=== PATIENT | male | born 1965 | race Hispanic/Latino ===

== ENCOUNTER → 2022-11-18 | Outpatient (CLI) | payer OTHER ==
[~2022-11-18] MED LIST: IOHEXOL 350 MG/ML 100ML INFUS..BTL IV ONE; METOPROLOL TARTRATE 1 MG/ML 5ML VIAL IV ONE
== END | disposition home or self-care (01) ==
LOC: RAH 08:03
PROVIDERS: ATTEND Student in an Organized Health Care Education/Training Program
DX: R07.9 Chest pain, unspecified (principal)
CPT/HCPCS: 75574; J3490 ×2; Q9967

== ENCOUNTER 2023-01-26 06:27 | Inpatient (IN) | payer OTHER ==
[2023-01-22 13:07] LABS: BASOPHILS # (AUTO) 0.05 K/uL (0.00-0.20); BASOPHILS % (AUTO) 0.7 % (0.0-5.0); EOSINOPHILS # (AUTO) 0.41 K/uL (0.00-0.70); EOSINOPHILS % (AUTO) 5.9 % (0.0-8.0); HEMATOCRIT 40.5 % (42-54); IMMATURE GRANULOCYTE ABSOLUTE 0.05 K/uL (0-1); LYMPHOCYTES # (AUTO) 2.1 K/uL (1.0-4.8); LYMPHOCYTES % (AUTO) 30.4 % (21.0-51.0); MEAN CORPUSCULAR HEMOGLOBIN 31.9 pg (27.0-33.0); MEAN CORPUSCULAR HGB CONC 33.8 g/dL (32.0-36.0); MEAN CORPUSCULAR VOLUME 94.2 fL (79-99); MONOCYTES # (AUTO) 0.5 K/uL (0.1-1.0); MONOCYTES % (AUTO) 7.1 % (3.0-13.0); NEUTROPHILS # (AUTO) 3.8 K/uL (1.8-7.7); NEUTROPHILS % (AUTO) 55.2 % (40.0-77.0); PLATELET COUNT (AUTO) 280 K/uL (130-400); RED CELL DISTRIBUTION WIDTH 12.3 % (11.0-15.5); WHITE BLOOD COUNT (AUTO) 6.9 K/uL (4.8-10.8)
[2023-01-22 13:18] LABS: APPEARANCE,URINE CLEAR (CLEAR); BILIRUBIN,URINE NEGATIVE (NEGATIVE); COLOR,URINE LIGHT-YELLOW (YELLOW); GLUCOSE, URINE (UA) NEGATIVE (NEGATIVE); KETONES,URINE NEGATIVE (NEGATIVE); LEUKOCYTE ESTERASE ,URINE NEGATIVE Leu/uL (NEGATIVE); NITRATE,URINE NEGATIVE (NEGATIVE); OCCULT BLOOD,URINE NEGATIVE (NEGATIVE); PROTEIN,URINE NEGATIVE (NEGATIVE); UROBILINOGEN,URINE 0.2 mg/dL (0.2-1.0)
[2023-01-22 13:19] LABS: CREATININE 0.7 mg/dL (0.5-1.5); INR < 0.93 (0.85-1.15); POTASSIUM 3.8 mmol/L (3.5-5.1); PROTHROMBIN TIME 10.5 SEC (9.6-11.6)
[2023-01-22 13:20] LABS: PARTIAL THROMBOPLASTIN TIME 29.9 SEC (26.3-35.5)
[2023-01-22 13:23] LABS: ADD UA MICROSCOPIC NO
[2023-01-22 13:27] VITALS: BP 154/79; PULSE 74; RESP 18
[2023-01-22 13:29] LABS: B-TYPE NATRIURETIC PEPTIDE 25 pg/mL (0-100)
[~2023-01-26] VITALS: Ht 172.7 cm; Wt 93.4 kg
[2023-01-26] VITALS (16 sets, daily range): BP systolic 113–171; BP diastolic 62–81; PULSE 66–81; RESP 13–18; O2SAT 96–97
[~2023-01-26 06:27] MED LIST changes: +AEC81 PO; +ATOR40TA71 PO; -IOHEXOL 350 MG/ML 100ML INFUS..BTL IV ONE; +LISI1TAB49 PO; -METOPROLOL TARTRATE 1 MG/ML 5ML VIAL IV ONE
[2023-01-26] MEDS ORDERED: 0.9%NACL 1000ML 1,000 ML IV ONE (07:29)
[2023-01-26] MEDS ORDERED: MIDAZOLAM HCL 1 MG/ML 2ML VIAL ONE ×3 (08:22→09:22)
[2023-01-26] MEDS ORDERED: LIDOCAINE HCL 400MG/20ML VIAL ONE ×2 (08:22→08:45)
[2023-01-26] MEDS ORDERED: FENTANYL CITRATE PF 50 MCG/1 ML 2ML VIAL ONE ×2 (08:22→08:45)
[2023-01-26] MEDS ORDERED: VERAPAMIL HCL 2.5 MG/ML VIAL ONE (08:46)
[2023-01-26] MEDS ORDERED: IOHEXOL 350 MG/ML 100ML INFUS..BTL IV ONE (08:46)
[2023-01-26] MEDS ORDERED: HEPARIN 10,000 UNIT/10ML (1,000 UNIT/ML) VIAL ONE (08:46)
[2023-01-26] MEDS ORDERED: NITROGLYCERIN 50MG VIAL ONE (09:07)
[2023-01-26] MEDS ORDERED: DEXTROSE 50%-WATER 50 ML DISP.SYRIN IV PRN (10:00)
[2023-01-26] MEDS ORDERED: GLUCAGON 1MG KIT 1 MG ML IM PRN (10:00)
[2023-01-26] MEDS: CEFAZOLIN SODIUM 2 GM VIAL IVPB SCH (13:30)
[2023-01-26 15:17] LABS: ABG BASE EXCESS 1.8 mmol/L (-2.0-3.0); ABG HCO3 26.2 mmol/L (21.0-28.0); ABG OXYGEN SATURATION 92.5 % (95.0-99.0); ABG PCO2 41 mmHg (35-48); ABG PH 7.429 (7.35-7.450); CARBON MONOXIDE 0.7; DEVICE COMMENT LR RA; HHb 7.4; PO2, ARTERIAL BG 62.3 mmHg (83.0-108.0)
[2023-01-26] MEDS ORDERED: THIAMINE HCL 100 MG/ML 2ML VIAL IVP ONE (20:00)
[2023-01-26] MEDS ORDERED: COMPOUND IV REFRIGERATED 1 EACH IVSOLN MISC PRN (20:00)
[2023-01-26] MEDS: ATORVASTATIN 40 MG TABLET PO SCH (20:19)
[2023-01-26] MEDS: M.V.I. IV [ADULT] 10 ML, FOLIC ACID 1 MG, THIAMINE HCL 100 MG in 0.9%NACL 1000ML 1,000 ML IV SCH (20:20)
[2023-01-26] MEDS: CARVEDILOL 6.25 MG TABLET PO SCH (20:20)
[2023-01-26] MEDS ORDERED: PANTOPRAZOLE 40 MG/VIAL IVP ONE (20:30)
[2023-01-27] VITALS (18 sets, daily range): BP systolic 78–172; BP diastolic 42–79; PULSE 54–85; RESP 4–21; TEMP 98.6; O2SAT 96–100
[2023-01-27 04:10] LABS: HEMATOCRIT 39.4 % (42-54); MEAN CORPUSCULAR HEMOGLOBIN 31.7 pg (27.0-33.0); MEAN CORPUSCULAR HGB CONC 33.8 g/dL (32.0-36.0); MEAN CORPUSCULAR VOLUME 93.8 fL (79-99); RED BLOOD CELL COUNT(AUTO) 4.2 MIL/uL (4.50-6.20); RED CELL DISTRIBUTION WIDTH 12.4 % (11.0-15.5); WHITE BLOOD COUNT (AUTO) 7.1 K/uL (4.8-10.8)
[2023-01-27 04:18] LABS: CREATININE 0.8 mg/dL (0.5-1.5); POTASSIUM 3.7 mmol/L (3.5-5.1)
[2023-01-27 04:22] LABS: INR < 0.93 (0.85-1.15); PROTHROMBIN TIME 10.5 SEC (9.6-11.6)
[2023-01-27 04:27] LABS: HEMOGLOBIN A1C 5.7 % (4.0-6.0)
[2023-01-27 04:29] LABS: ALBUMIN 3.4 g/dL (3.5-5.0); BILIRUBIN,TOTAL 0.7 mg/dL (0.2-1.0); TOTAL PROTEIN, SERUM 6.9 g/dL (6.0-8.3)
[2023-01-27] MEDS: ASPIRIN 81 MG EC TAB PO SCH (07:42)
[2023-01-27] MEDS: CARVEDILOL 6.25 MG TABLET PO SCH (08:40)
[2023-01-27] MEDS ORDERED: HYDROCHLOROTHIAZIDE 25 MG TABLET PO SCH (09:00)
[2023-01-27] MEDS ORDERED: LISINOPRIL 10 MG TABLET PO SCH (09:00)
[2023-01-27] MEDS ORDERED: PANTOPRAZOLE 40 MG/VIAL IVP SCH (09:00)
[2023-01-27] MEDS ORDERED: CEFAZOLIN SODIUM 1 GM VIAL ONE (11:11)
[2023-01-27] MEDS ORDERED: PAPAVERINE HCL 30 MG/ML 2ML VIAL ONE (11:12)
[2023-01-27] MEDS ORDERED: LIDOCAINE 2G/250ML 250 ML IV ONE (11:43)
[2023-01-27] MEDS ORDERED: EPINEPHRINE PF 1MG (1:1,000) 10 MG in 0.9% NACL 250ML 240 ML IV PRN ×2 (12:30→17:00)
[2023-01-27] MEDS ORDERED: NOREPINEPHRINE BITARTRATE 8 MG in DEXTROSE 5%-WATER 250 ML IV PRN (12:30)
[2023-01-27] MEDS ORDERED: AMINOCAPROIC ACID 15,000 MG in 0.9% NACL 500ML IV PRN (12:30)
[2023-01-27] MEDS: M.V.I. IV [ADULT] 10 ML, FOLIC ACID 1 MG, THIAMINE HCL 100 MG in 0.9%NACL 1000ML 1,000 ML IV SCH (12:41)
[2023-01-27] MEDS: CEFAZOLIN SODIUM 2 GM VIAL IVPB SCH ×2 (13:30→23:28)
[2023-01-27] MEDS ORDERED: 0.9%NACL 1000ML 1,000 ML IV ONE (14:02)
[2023-01-27] MEDS ORDERED: CEFAZOLIN SODIUM 2 GM VIAL ONE (14:03)
[2023-01-27] MEDS ORDERED: ALBUMIN (HUMAN) 5% 250 ML IV ONE (16:02)
[2023-01-27] MEDS ORDERED: NOREPINEPHRINE BITARTRATE 8 MG in 0.9% NACL 250ML 250 ML IV PRN (17:00)
[2023-01-27] MEDS ORDERED: ONDANSETRON 4MG INJ IV PRN (17:00)
[2023-01-27] MEDS ORDERED: ACETAMINOPHEN 325 MG TAB PO PRN (17:00)
[2023-01-27] MEDS ORDERED: MAGNESIUM HYDROXIDE 30 ML/UDCUP PO PRN (17:00)
[2023-01-27] MEDS ORDERED: 0.9%NACL 10ML VIAL IVP PRN (17:00)
[2023-01-27] MEDS ORDERED: SODIUM BICARB 50MEQ 50ML VIAL IV PRN (17:00)
[2023-01-27] MEDS ORDERED: INSULIN REGULAR, HUMAN 3ML 100 UNIT in 0.9%NACL 100ML 99 ML IV SCH ×2 (17:00)
[2023-01-27] MEDS ORDERED: ACETAMINOPHEN 650 MG SUPPOSITORY RC PRN (17:00)
[2023-01-27] MEDS ORDERED: POTASSIUM PHOS 15 mMOL+NS250ML 250 ML IV PRN (17:00)
[2023-01-27] MEDS ORDERED: AMINOCAPROIC ACID 5,000MG VIAL 15,000 MG in 0.9% NACL 250ML 250 ML IV SCH (17:00)
[2023-01-27] MEDS ORDERED: PROPOFOL 1000 MG/100 ML 100 ML IV PRN (17:00)
[2023-01-27] MEDS ORDERED: GLUCAGON 1MG KIT 1 MG ML IM PRN (17:00)
[2023-01-27] MEDS ORDERED: LACTULOSE 20 GM/30 ML UDCUP PO PRN (17:00)
[2023-01-27] MEDS ORDERED: 0.9%NACL 1000ML 1,000 ML IV SCH (17:00)
[2023-01-27] MEDS ORDERED: MORPHINE 4 MG SYG IV PRN (17:00)
[2023-01-27] MEDS ORDERED: 0.9% NACL 500ML IV.SOLN 500 ML IV SCH (17:00)
[2023-01-27] MEDS ORDERED: MORPHINE 2 MG SYG IV PRN (17:00)
[2023-01-27] MEDS ORDERED: NITROGLYCERIN 50MG/D5W 250ML 250 BOT IV SCH (17:00)
[2023-01-27] MEDS ORDERED: DEXTROSE 50%-WATER 50 ML DISP.SYRIN IV PRN (17:00)
[2023-01-27] MEDS ORDERED: TRAMADOL HCL 50 MG TABLET PO PRN ×2 (17:00)
[2023-01-27] MEDS ORDERED: ALBUMIN (HUMAN) 5% 250 ML IV PRN (17:00)
[2023-01-27] MEDS ORDERED: LIDOCAINE PF 100MG/5ML (2%) SYRINGE 5ML ONE (17:08)
[2023-01-27] MEDS ORDERED: HEPARIN 10,000 UNIT/10ML (1,000 UNIT/ML) VIAL ONE (17:08)
[2023-01-27] MEDS ORDERED: ESMOLOL HCL 10 MG/ML 10 ML VIAL ONE (17:08)
[2023-01-27] MEDS ORDERED: PROTAMINE SULFATE 10 MG/ML 25ML VIAL IV ONE ×2 (17:08→20:22)
[2023-01-27] MEDS ORDERED: AMINOCAPROIC ACID 5,000MG VIAL ONE (17:09)
[2023-01-27] MEDS ORDERED: FENTANYL CITRATE PF 50 MCG/1 ML 20ML VIAL IJ ONE (17:09)
[2023-01-27] MEDS ORDERED: MIDAZOLAM HCL 1 MG/ML 2ML VIAL ONE (17:09)
[2023-01-27] MEDS ORDERED: PROPOFOL 10 MG/ML 20ML VIAL IV ONE (17:09)
[2023-01-27] MEDS ORDERED: EPINEPHRINE PF 1MG (1:1,000) 1 MG/ML AMP ONE (17:09)
[2023-01-27] MEDS ORDERED: NOREPINEPHRINE BITARTRATE 1 MG/1 ML ML IV ONE (17:09)
[2023-01-27] MEDS ORDERED: ROCURONIUM 10MG/1ML SYR 10 MG/ML ML ONE (17:09)
[2023-01-27] MEDS ORDERED: ETOMIDATE 20MG VIAL ONE (17:11)
[2023-01-27] MEDS ORDERED: CEFAZOLIN SODIUM 2 GM VIAL IVPB ONE (17:40)
[2023-01-27] MEDS ORDERED: AMIODARONE 150MG VIAL ONE (17:44)
[2023-01-27 17:56] LABS: ABG BASE EXCESS -5.5 mmol/L (-2.0-3.0); ABG HCO3 19.7 mmol/L (21.0-28.0); ABG OXYGEN SATURATION 99.5 % (95.0-99.0); ABG PCO2 38 mmHg (35-48); ABG PH 7.337 (7.35-7.450); CARBON MONOXIDE 0; DEVICE COMMENT 1; HHb 0.5; PO2, ARTERIAL BG 400.2 mmHg (83.0-108.0)
[2023-01-27] MEDS ORDERED: PAPAVERINE HCL 30 MG/ML 2ML VIAL IRRIG ONE (18:11)
[2023-01-27] MEDS ORDERED: CEFAZOLIN SODIUM 1 GM VIAL IRRIG ONE (18:11)
[2023-01-27] MEDS ORDERED: MAGNESIUM SULFATE 4.06 MEQ/ML ***TPN USE ONLY IJ ONE (18:58)
[2023-01-27 19:06] LABS: ABG BASE EXCESS 4.6 mmol/L (-2.0-3.0); ABG HCO3 30.3 mmol/L (21.0-28.0); ABG OXYGEN SATURATION 99.5 % (95.0-99.0); ABG PCO2 49 mmHg (35-48); ABG PH 7.407 (7.35-7.450); CARBON MONOXIDE 0.1; DEVICE COMMENT 2; HHb 0.5; PO2, ARTERIAL BG 456.9 mmHg (83.0-108.0)
[2023-01-27] MEDS ORDERED: ATROPINE 1MG SYG IVP ONE (19:17)
[2023-01-27 19:42] LABS: ABG BASE EXCESS 0.9 mmol/L (-2.0-3.0); ABG HCO3 25.6 mmol/L (21.0-28.0); ABG OXYGEN SATURATION 99.6 % (95.0-99.0); ABG PCO2 41 mmHg (35-48); ABG PH 7.411 (7.35-7.450); CARBON MONOXIDE 0; DEVICE COMMENT 3; HHb 0.4; PO2, ARTERIAL BG 480.8 mmHg (83.0-108.0)
[2023-01-27] MEDS ORDERED: METOPROLOL TARTRATE 1 MG/ML 5ML VIAL IV ONE (19:44)
[2023-01-27] MEDS ORDERED: ALBUMIN (HUMAN) 5% 500 ML IV ONE ×2 (20:09→20:10)
[2023-01-27 20:36] LABS: ABG BASE EXCESS 2.1 mmol/L (-2.0-3.0); ABG HCO3 26.5 mmol/L (21.0-28.0); ABG OXYGEN SATURATION 99.1 % (95.0-99.0); ABG PCO2 40 mmHg (35-48); ABG PH 7.435 (7.35-7.450); CARBON MONOXIDE 0.3; DEVICE COMMENT 5; HHb 0.9; PO2, ARTERIAL BG 463.9 mmHg (83.0-108.0)
[2023-01-27] MEDS ORDERED: PROTAMINE SULFATE 10 MG/ML 5 ML VIAL ONE (20:40)
[2023-01-27] MEDS ORDERED: FENTANYL CITRATE PF 50 MCG/1 ML 5ML AMP IV ONE ×2 (20:59)
[2023-01-27] MEDS ORDERED: ASPIRIN 81MG CHEW TAB NG ONE (21:00)
[2023-01-27] MEDS: DOCUSATE SODIUM 100 MG CAP PO SCH (21:00)
[2023-01-27 21:43] LABS: ABG BASE EXCESS 3.2 mmol/L (-2.0-3.0); ABG HCO3 27.3 mmol/L (21.0-28.0); ABG OXYGEN SATURATION 99.1 % (95.0-99.0); ABG PCO2 40 mmHg (35-48); ABG PH 7.453 (7.35-7.450); CARBON MONOXIDE 0.2; HHb 0.9; PO2, ARTERIAL BG 477.2 mmHg (83.0-108.0); VENT MODE, BG SIMV,PS10 (ROOM AIR)
[2023-01-27 21:45] LABS: HEMATOCRIT 31.2 % (42-54); MEAN CORPUSCULAR HEMOGLOBIN 32.3 pg (27.0-33.0); MEAN CORPUSCULAR HGB CONC 34.9 g/dL (32.0-36.0); MEAN CORPUSCULAR VOLUME 92.6 fL (79-99); RED BLOOD CELL COUNT(AUTO) 3.37 MIL/uL (4.50-6.20); RED CELL DISTRIBUTION WIDTH 12.1 % (11.0-15.5); WHITE BLOOD COUNT (AUTO) 14.7 K/uL (4.8-10.8)
[2023-01-27] MEDS ORDERED: DEXMEDETOMIDINE 400MCG/NS100ML IV ONE (21:51)
[2023-01-27 21:58] LABS: CREATININE 0.7 mg/dL (0.5-1.5); INR 1.06 (0.85-1.15); MAGNESIUM 1.8 mg/dL (1.80-2.40); PHOSPHORUS 3.8 mg/dL (2.5-4.9); POTASSIUM 3.3 mmol/L (3.5-5.1); PROTHROMBIN TIME 12.3 SEC (9.6-11.6)
[2023-01-27 21:59] LABS: PARTIAL THROMBOPLASTIN TIME 24.4 SEC (26.3-35.5)
[2023-01-27 22:47] LABS: ABG OXYGEN SATURATION 63.6 % (95.0-99.0); BASE EXCESS,VENOUS BLOOD GAS -1.3 (-2.0-3.0); HCO3,VENOUS BLOOD GAS 23.8 (21.0-28.0); PCO2,VENOUS BLOOD GAS 42 (32-45); PH,VENOUS BLOOD GAS 7.375 (7.350-7.450); PO2,VENOUS BLOOD GAS 32.7 mmHg (35.0-45.0); VENT MODE, BG SIMV PS 10 (ROOM AIR)
[2023-01-27 22:52] LABS: ABG BASE EXCESS -0.3 mmol/L (-2.0-3.0); ABG HCO3 24.5 mmol/L (21.0-28.0); ABG OXYGEN SATURATION 96.5 % (95.0-99.0); ABG PCO2 40 mmHg (35-48); ABG PH 7.401 (7.35-7.450); CARBON MONOXIDE 0.3; HHb 3.5; PO2, ARTERIAL BG 93.2 mmHg (83.0-108.0); VENT MODE, BG SIMV PS 10 (ROOM AIR)
[2023-01-27] MEDS: CALCIUM GLUC 1GM 1 GM in 0.9%NACL 50ML 50 ML IV PRN ×2 (22:57→23:02)
[2023-01-27] MEDS: POTASSIUM CHLORIDE 20MEQ/100ML 100 ML IV PRN (22:57)
[2023-01-27] MEDS: DEXMEDETOMIDINE 400MCG/NS100ML IV SCH (23:03)
[2023-01-27] MEDS ORDERED: CALCIUM GLUC 1GM/10ML VIAL ONE (23:20)
[2023-01-27] MEDS: MAGNESIUM 2GM PREMIX 50ML 50 ML IV PRN (23:23)
[2023-01-27] MEDS: FAMOTIDINE 20MG VIAL IV SCH (23:28)
[2023-01-27] MEDS: ATORVASTATIN 40 MG TABLET PO SCH (23:28)
[2023-01-27 23:49] LABS: ABG BASE EXCESS -1.5 mmol/L (-2.0-3.0); ABG HCO3 23.9 mmol/L (21.0-28.0); ABG OXYGEN SATURATION 98.1 % (95.0-99.0); ABG PCO2 43 mmHg (35-48); ABG PH 7.361 (7.35-7.450); CARBON MONOXIDE 0.2; HHb 1.9; PO2, ARTERIAL BG 143.9 mmHg (83.0-108.0); VENT MODE, BG SIMV PS 10 (ROOM AIR)
[2023-01-28] VITALS (89 sets, daily range): BP systolic 86–296; BP diastolic 45–155; PULSE 62–100; RESP 4–26; TEMP 98.4–100.5; O2SAT 93–100
[2023-01-28 00:22] LABS: ABG HCO3 22.7 mmol/L (21.0-28.0); ABG OXYGEN SATURATION 97.3 % (95.0-99.0); ABG PCO2 39 mmHg (35-48); ABG PH 7.386 (7.35-7.450); CARBON MONOXIDE 0.3; HHb 2.7; VENT MODE, BG SIMV P10 (ROOM AIR)
[2023-01-28 00:25] LABS: ABG BASE EXCESS -0.1 mmol/L (-2.0-3.0); ABG HCO3 25.2 mmol/L (21.0-28.0); ABG OXYGEN SATURATION 97.6 % (95.0-99.0); ABG PCO2 44 mmHg (35-48); ABG PH 7.377 (7.35-7.450); CARBON MONOXIDE 0.6; HHb 2.4; PO2, ARTERIAL BG 120.3 mmHg (83.0-108.0); VENT MODE, BG SIMV PS10 (ROOM AIR)
[2023-01-28 01:47] LABS: ABG BASE EXCESS 0.2 mmol/L (-2.0-3.0); ABG HCO3 25.3 mmol/L (21.0-28.0); ABG OXYGEN SATURATION 98.1 % (95.0-99.0); ABG PCO2 43 mmHg (35-48); ABG PH 7.387 (7.35-7.450); CARBON MONOXIDE 0.6; HHb 1.9; PO2, ARTERIAL BG 138.3 mmHg (83.0-108.0); VENT MODE, BG SIMV PS 10 (ROOM AIR)
[2023-01-28 02:52] LABS: ABG BASE EXCESS -0.9 mmol/L (-2.0-3.0); ABG OXYGEN SATURATION 98.3 % (95.0-99.0); ABG PCO2 41 mmHg (35-48); ABG PH 7.386 (7.35-7.450); CARBON MONOXIDE 0.7; HHb 1.7; PO2, ARTERIAL BG 143.9 mmHg (83.0-108.0); VENT MODE, BG SIMV PS 10 (ROOM AIR)
[2023-01-28] MEDS: POTASSIUM CHLORIDE 20MEQ/100ML 100 ML IV PRN ×2 (03:34→04:06)
[2023-01-28 03:48] LABS: ABG BASE EXCESS -0.5 mmol/L (-2.0-3.0); ABG HCO3 23.8 mmol/L (21.0-28.0); ABG OXYGEN SATURATION 98.4 % (95.0-99.0); ABG PCO2 38 mmHg (35-48); ABG PH 7.415 (7.35-7.450); CARBON MONOXIDE 0.7; HHb 1.6; PO2, ARTERIAL BG 146.4 mmHg (83.0-108.0); VENT MODE, BG SIMV PS 10 (ROOM AIR)
[2023-01-28 04:50] LABS: ABG BASE EXCESS 0.2 mmol/L (-2.0-3.0); ABG HCO3 24.9 mmol/L (21.0-28.0); ABG OXYGEN SATURATION 98.1 % (95.0-99.0); ABG PCO2 41 mmHg (35-48); ABG PH 7.406 (7.35-7.450); CARBON MONOXIDE 0.6; HHb 1.9; PO2, ARTERIAL BG 133.1 mmHg (83.0-108.0); VENT MODE, BG SIMV PS 10 (ROOM AIR)
[2023-01-28 04:56] LABS: MEAN CORPUSCULAR HEMOGLOBIN 32.2 pg (27.0-33.0); MEAN CORPUSCULAR HGB CONC 33.5 g/dL (32.0-36.0); RED BLOOD CELL COUNT(AUTO) 3.54 MIL/uL (4.50-6.20); RED CELL DISTRIBUTION WIDTH 12.2 % (11.0-15.5); WHITE BLOOD COUNT (AUTO) 12.1 K/uL (4.8-10.8)
[2023-01-28 05:13] LABS: CREATININE 0.8 mg/dL (0.5-1.5); MAGNESIUM 1.8 mg/dL (1.80-2.40); POTASSIUM 4.5 mmol/L (3.5-5.1)
[2023-01-28 05:14] LABS: INR 0.96 (0.85-1.15); PROTHROMBIN TIME 11.2 SEC (9.6-11.6)
[2023-01-28] MEDS: CEFAZOLIN SODIUM 2 GM VIAL IVPB SCH ×2 (05:14→15:25)
[2023-01-28] MEDS: DEXMEDETOMIDINE 400MCG/NS100ML IV SCH (05:14)
[2023-01-28 05:15] LABS: PARTIAL THROMBOPLASTIN TIME 25.4 SEC (26.3-35.5)
[2023-01-28 06:21] LABS: ABG BASE EXCESS 0.6 mmol/L (-2.0-3.0); ABG HCO3 25.1 mmol/L (21.0-28.0); ABG OXYGEN SATURATION 98.1 % (95.0-99.0); ABG PCO2 40 mmHg (35-48); ABG PH 7.415 (7.35-7.450); CARBON MONOXIDE 0.5; HHb 1.9; PO2, ARTERIAL BG 131.8 mmHg (83.0-108.0); VENT MODE, BG SIMV-VC PS10 (ROOM AIR)
[2023-01-28 08:02] LABS: ABG BASE EXCESS 0.7 mmol/L (-2.0-3.0); ABG HCO3 24.7 mmol/L (21.0-28.0); ABG OXYGEN SATURATION 98.4 % (95.0-99.0); ABG PCO2 37 mmHg (35-48); ABG PH 7.438 (7.35-7.450); CARBON MONOXIDE 0.7; HHb 1.6; VENT MODE, BG SIMV-VC PS10 (ROOM AIR)
[2023-01-28] MEDS: DOCUSATE SODIUM 100 MG CAP PO SCH ×2 (08:13→20:51)
[2023-01-28] MEDS: FUROSEMIDE 20MG VIAL IV SCH ×2 (08:13→20:51)
[2023-01-28] MEDS: FAMOTIDINE 20MG VIAL IV SCH ×2 (08:13→20:50)
[2023-01-28] MEDS: ASPIRIN 81 MG EC TAB PO SCH (08:13)
[2023-01-28] MEDS ORDERED: FISH OIL 1000 MG/CAP PO SCH (09:00)
[2023-01-28] MEDS ORDERED: PHARMACY COMMUNICATION MISC PRN (09:30)
[2023-01-28] MEDS ORDERED: CHLORDIAZEPOXIDE HCL 25 MG CAP PO PRN ×2 (09:30)
[2023-01-28] MEDS ORDERED: LORAZEPAM 2 MG/ML 1 ML VIAL IVP PRN ×2 (09:30)
[2023-01-28 09:32] LABS: ABG BASE EXCESS 1.8 mmol/L (-2.0-3.0); ABG HCO3 25.9 mmol/L (21.0-28.0); ABG OXYGEN SATURATION 98.5 % (95.0-99.0); ABG PCO2 39 mmHg (35-48); ABG PH 7.442 (7.35-7.450); CARBON MONOXIDE 0.5; HHb 1.5; PO2, ARTERIAL BG 142.1 mmHg (83.0-108.0); VENT MODE, BG SIMV-VC PS10 (ROOM AIR)
[2023-01-28 10:45] LABS: ABG BASE EXCESS -0.5 mmol/L (-2.0-3.0); ABG HCO3 23.7 mmol/L (21.0-28.0); ABG OXYGEN SATURATION 98.3 % (95.0-99.0); ABG PCO2 37 mmHg (35-48); CARBON MONOXIDE 0.5; HHb 1.7; PO2, ARTERIAL BG 140.5 mmHg (83.0-108.0); VENT MODE, BG CAFM (ROOM AIR)
[2023-01-28] MEDS ORDERED: ALBUMIN (HUMAN) 5% 250 ML IV STA (14:27)
[2023-01-28] MEDS ORDERED: CEFAZOLIN SODIUM 2 GM VIAL ONE (15:23)
[2023-01-28] MEDS ORDERED: NOREPINEPHRIN 8MG/250ML NS 250 ML IV ONE (20:22)
[2023-01-28] MEDS: ATORVASTATIN 40 MG TABLET PO SCH (20:51)
[2023-01-28] MEDS: ACETAMINOPHEN 325 MG TAB PO PRN (20:52)
[2023-01-29] VITALS (57 sets, daily range): BP systolic 84–171; BP diastolic 37–92; PULSE 80–102; RESP 10–26; TEMP 97.9–99.6; O2SAT 95–100
[2023-01-29 06:27] LABS: BASOPHILS # (AUTO) 0.02 K/uL (0.00-0.20); BASOPHILS % (AUTO) 0.2 % (0.0-5.0); EOSINOPHILS # (AUTO) 0.04 K/uL (0.00-0.70); EOSINOPHILS % (AUTO) 0.4 % (0.0-8.0); HEMATOCRIT 26.9 % (42-54); IMMATURE GRANULOCYTE ABSOLUTE 0.04 K/uL (0-1); LYMPHOCYTES # (AUTO) 1.4 K/uL (1.0-4.8); LYMPHOCYTES % (AUTO) 14.3 % (21.0-51.0); MEAN CORPUSCULAR HEMOGLOBIN 32.3 pg (27.0-33.0); MEAN CORPUSCULAR HGB CONC 33.8 g/dL (32.0-36.0); MEAN CORPUSCULAR VOLUME 95.4 fL (79-99); MONOCYTES # (AUTO) 0.6 K/uL (0.1-1.0); MONOCYTES % (AUTO) 6.4 % (3.0-13.0); NEUTROPHILS # (AUTO) 7.6 K/uL (1.8-7.7); NEUTROPHILS % (AUTO) 78.3 % (40.0-77.0); PLATELET COUNT (AUTO) 143 K/uL (130-400); RED BLOOD CELL COUNT(AUTO) 2.82 MIL/uL (4.50-6.20); RED CELL DISTRIBUTION WIDTH 12.5 % (11.0-15.5); WHITE BLOOD COUNT (AUTO) 9.7 K/uL (4.8-10.8)
[2023-01-29 06:42] LABS: CREATININE 0.6 mg/dL (0.5-1.5); POTASSIUM 3.1 mmol/L (3.5-5.1)
[2023-01-29] MEDS: POTASSIUM CHLORIDE 20MEQ/100ML 100 ML IV PRN ×2 (07:03→15:34)
[2023-01-29] MEDS: FAMOTIDINE 20MG VIAL IV SCH ×2 (10:40→21:03)
[2023-01-29] MEDS: FUROSEMIDE 20 MG TABLET PO SCH ×2 (10:40→18:49)
[2023-01-29] MEDS: DOCUSATE SODIUM 100 MG CAP PO SCH ×2 (10:41→21:03)
[2023-01-29] MEDS: ASPIRIN 81 MG EC TAB PO SCH (10:41)
[2023-01-29] MEDS: INSULIN HUMULIN R 100 UNIT/ML 3ML SQ SCH ×3 (11:30→21:00)
[2023-01-29 12:48] LABS: MAGNESIUM 1.7 mg/dL (1.80-2.40); POTASSIUM 3.9 mmol/L (3.5-5.1)
[2023-01-29] MEDS: MAGNESIUM 2GM PREMIX 50ML 50 ML IV PRN (15:34)
[2023-01-29] MEDS: ATORVASTATIN 40 MG TABLET PO SCH (21:03)
[2023-01-29] MEDS: METOPROLOL TARTRATE 25 MG TAB PO SCH (21:03)
[2023-01-30] VITALS (11 sets, daily range): BP systolic 109–133; BP diastolic 68–80; PULSE 81–97; RESP 12–18; TEMP 98.2; O2SAT 95–97
[2023-01-30 04:41] LABS: HEMATOCRIT 30.2 % (42-54); MEAN CORPUSCULAR HEMOGLOBIN 32.6 pg (27.0-33.0); MEAN CORPUSCULAR HGB CONC 33.1 g/dL (32.0-36.0); MEAN CORPUSCULAR VOLUME 98.4 fL (79-99); RED BLOOD CELL COUNT(AUTO) 3.07 MIL/uL (4.50-6.20); RED CELL DISTRIBUTION WIDTH 12.4 % (11.0-15.5); WHITE BLOOD COUNT (AUTO) 10.7 K/uL (4.8-10.8)
[2023-01-30 04:58] LABS: CREATININE 0.7 mg/dL (0.5-1.5)
[2023-01-30] MEDS: INSULIN HUMULIN R 100 UNIT/ML 3ML SQ SCH ×4 (07:30→20:49)
[2023-01-30] MEDS: FUROSEMIDE 20 MG TABLET PO SCH ×2 (08:33→16:27)
[2023-01-30] MEDS: FAMOTIDINE 20MG VIAL IV SCH ×2 (08:33→20:48)
[2023-01-30] MEDS: DOCUSATE SODIUM 100 MG CAP PO SCH ×2 (08:33→20:48)
[2023-01-30] MEDS: ASPIRIN 81 MG EC TAB PO SCH (08:33)
[2023-01-30] MEDS: METOPROLOL TARTRATE 25 MG TAB PO SCH ×2 (08:33→20:51)
[2023-01-30] MEDS: ENOXAPARIN SODIUM 30 MG/0.3 ML SQ SCH (08:34)
[2023-01-30] MEDS: ATORVASTATIN 40 MG TABLET PO SCH (20:48)
[2023-01-31] VITALS (8 sets, daily range): BP systolic 108–146; BP diastolic 67–94; PULSE 81–91; RESP 18–20; O2SAT 94–95
[2023-01-31 03:58] LABS: HEMATOCRIT 26.5 % (42-54); MEAN CORPUSCULAR HEMOGLOBIN 32.1 pg (27.0-33.0); MEAN CORPUSCULAR HGB CONC 33.2 g/dL (32.0-36.0); MEAN CORPUSCULAR VOLUME 96.7 fL (79-99); RED BLOOD CELL COUNT(AUTO) 2.74 MIL/uL (4.50-6.20); RED CELL DISTRIBUTION WIDTH 12.5 % (11.0-15.5)
[2023-01-31 04:17] LABS: CREATININE 0.7 mg/dL (0.5-1.5)
[2023-01-31] MEDS ORDERED: POTASSIUM CHLORIDE 10% ELIXIR 20 MEQ/15 ML UDCUP PO PRN (05:00)
[2023-01-31] MEDS ORDERED: KCL 20 MEQ ERTAB PO ONE (05:03)
[2023-01-31] MEDS: INSULIN HUMULIN R 100 UNIT/ML 3ML SQ SCH ×4 (07:30→19:48)
[2023-01-31] MEDS: ENOXAPARIN SODIUM 30 MG/0.3 ML SQ SCH (08:28)
[2023-01-31] MEDS: DOCUSATE SODIUM 100 MG CAP PO SCH ×2 (08:28→20:45)
[2023-01-31] MEDS: ASPIRIN 81 MG EC TAB PO SCH (08:28)
[2023-01-31] MEDS: METOPROLOL TARTRATE 25 MG TAB PO SCH ×2 (08:29→20:45)
[2023-01-31] MEDS: FAMOTIDINE 20MG VIAL IV SCH ×2 (08:29→20:45)
[2023-01-31] MEDS: FUROSEMIDE 20 MG TABLET PO SCH ×2 (08:29→17:16)
[2023-01-31] MEDS: KCL 20 MEQ ERTAB PO PRN ×2 (08:33→10:46)
[2023-01-31] MEDS: ATORVASTATIN 40 MG TABLET PO SCH (20:45)
[2023-02-01] VITALS (9 sets, daily range): BP systolic 100–147; BP diastolic 58–76; PULSE 77–96; RESP 18; O2SAT 94–95
[2023-02-01] MEDS: INSULIN HUMULIN R 100 UNIT/ML 3ML SQ SCH ×4 (05:30→20:18)
[2023-02-01] MEDS: ASPIRIN 81 MG EC TAB PO SCH (08:09)
[2023-02-01] MEDS: METOPROLOL TARTRATE 25 MG TAB PO SCH ×2 (08:10→20:12)
[2023-02-01] MEDS: DOCUSATE SODIUM 100 MG CAP PO SCH ×3 (08:10→21:00)
[2023-02-01] MEDS: FAMOTIDINE 20MG VIAL IV SCH (08:10)
[2023-02-01] MEDS: ENOXAPARIN SODIUM 30 MG/0.3 ML SQ SCH (08:11)
[2023-02-01] MEDS: FUROSEMIDE 20 MG TABLET PO SCH ×2 (08:11→17:08)
[2023-02-01 09:24] LABS: CREATININE 0.7 mg/dL (0.5-1.5); MAGNESIUM 2.3 mg/dL (1.80-2.40)
[2023-02-01] MEDS: KCL 20 MEQ ERTAB PO PRN ×4 (09:49→17:09)
[2023-02-01] MEDS: ATORVASTATIN 40 MG TABLET PO SCH (20:12)
[2023-02-01] MEDS: ACETAMINOPHEN 325 MG TAB PO PRN (20:23)
[2023-02-02] VITALS (7 sets, daily range): BP systolic 113–145; BP diastolic 60–82; PULSE 86–97; RESP 18–20; O2SAT 93–98
[2023-02-02 05:06] LABS: BASOPHILS # (AUTO) 0.04 K/uL (0.00-0.20); BASOPHILS % (AUTO) 0.5 % (0.0-5.0); EOSINOPHILS # (AUTO) 0.59 K/uL (0.00-0.70); HEMATOCRIT 26.1 % (42-54); IMMATURE GRANULOCYTE ABSOLUTE 0.16 K/uL (0-1); LYMPHOCYTES # (AUTO) 1.5 K/uL (1.0-4.8); LYMPHOCYTES % (AUTO) 17.4 % (21.0-51.0); MEAN CORPUSCULAR HEMOGLOBIN 32.2 pg (27.0-33.0); MEAN CORPUSCULAR HGB CONC 33.3 g/dL (32.0-36.0); MEAN CORPUSCULAR VOLUME 96.7 fL (79-99); MONOCYTES # (AUTO) 0.7 K/uL (0.1-1.0); MONOCYTES % (AUTO) 8.3 % (3.0-13.0); NEUTROPHILS # (AUTO) 5.5 K/uL (1.8-7.7); NEUTROPHILS % (AUTO) 64.9 % (40.0-77.0); NUCLEATED RED BLOOD CELLS 0.5 % (0.0-0.19); PLATELET COUNT (AUTO) 279 K/uL (130-400); RED CELL DISTRIBUTION WIDTH 12.8 % (11.0-15.5); WHITE BLOOD COUNT (AUTO) 8.5 K/uL (4.8-10.8)
[2023-02-02 05:16] LABS: CREATININE 0.6 mg/dL (0.5-1.5)
[2023-02-02] MEDS: KCL 20 MEQ ERTAB PO PRN ×2 (06:03→09:02)
[2023-02-02] MEDS: INSULIN HUMULIN R 100 UNIT/ML 3ML SQ SCH ×3 (06:09→16:30)
[2023-02-02] MEDS: ENOXAPARIN SODIUM 30 MG/0.3 ML SQ SCH (08:28)
[2023-02-02] MEDS: METOPROLOL TARTRATE 25 MG TAB PO SCH ×2 (08:29→19:38)
[2023-02-02] MEDS: FUROSEMIDE 20 MG TABLET PO SCH ×2 (08:29→17:35)
[2023-02-02] MEDS: DOCUSATE SODIUM 100 MG CAP PO SCH ×2 (08:29→19:39)
[2023-02-02] MEDS: ASPIRIN 81 MG EC TAB PO SCH (08:29)
[2023-02-02] MEDS ORDERED: KCL 20 MEQ ERTAB PO SCH (15:00)
[2023-02-02] MEDS ORDERED: DOCU100C33 PO (15:44)
[2023-02-02] MEDS ORDERED: FURO20TA4 PO (15:45)
[2023-02-02] MEDS ORDERED: METO25TA6 PO (15:47)
[2023-02-02] MEDS ORDERED: POTA-364 PO (15:48)
[2023-02-02] MEDS: ATORVASTATIN 40 MG TABLET PO SCH (19:38)
== END 2023-02-02 22:15 | DRG 233 ==
LOC: DAH 06:27 → DAHIP 06:28 → 2DH 15:45 → 2CV 01-27 14:25 → 2CH 01-28 13:42 → 2AH 01-30 01:39
PROVIDERS: ADMIT Internal Medicine; ATTEND Internal Medicine
PROC: 4A023N7 Measurement of Cardiac Sampling and Pressure, Left Heart, Percutaneous Approach (ICD-10-PCS; 2023-01-26)
PROC: B2111ZZ Fluoroscopy of Multiple Coronary Arteries using Low Osmolar Contrast (ICD-10-PCS; 2023-01-26)
PROC: B2151ZZ Fluoroscopy of Left Heart using Low Osmolar Contrast (ICD-10-PCS; 2023-01-26)
PROC: 021209W Bypass Coronary Artery, Three Arteries from Aorta with Autologous Venous Tissue, Open Approach (ICD-10-PCS; 2023-01-27)
PROC: 06BQ4ZZ Excision of Left Saphenous Vein, Percutaneous Endoscopic Approach (ICD-10-PCS; 2023-01-27)
PROC: 0PH000Z Insertion of Rigid Plate Internal Fixation Device into Sternum, Open Approach (ICD-10-PCS; 2023-01-27)
PROC: 5A1221Z Performance of Cardiac Output, Continuous (ICD-10-PCS; 2023-01-27)
PROC: 02100Z9 Bypass Coronary Artery, One Artery from Left Internal Mammary, Open Approach (ICD-10-PCS; principal; 2023-01-27 17:05)
DX: I25.10 Atherosclerotic heart disease of native coronary artery without angina pectoris (principal); I21.4 Non-ST elevation (NSTEMI) myocardial infarction; J98.11 Atelectasis; I10 Essential (primary) hypertension; E66.3 Overweight; E78.1 Pure hyperglyceridemia; F10.10 Alcohol abuse, uncomplicated; E78.00 Pure hypercholesterolemia, unspecified; E87.70 Fluid overload, unspecified; I25.2 Old myocardial infarction; J98.4 Other disorders of lung; Z79.899 Other long term (current) drug therapy; Z82.49 Family history of ischemic heart disease and other diseases of the circulatory system; Z90.49 Acquired absence of other specified parts of digestive tract; Z93.3 Colostomy status; Z68.31 Body mass index [BMI] 31.0-31.9, adult
CPT/HCPCS: 36415; 36600; 71045; 80048; 80053; 80061; 81003; 82330; 82435; 82803; 82947; 82948; 83036; 83605; 83735; 83880; 84100; 84132; 84295; 85018; 85025; 85027; 85610; 85730; 86850; 86900; 86901; 86923; 87641; 93005; 93306; 93356; 93458; 93880; 94002; 94003; 94010; 94150; 99156; 99157; A4606; A7048; C1769; C9113; G0378; J0171; J0282; J0461; J0610; J0690; J1644; J1650; J1815; J1940; J2001; J2250; J2440; J2704; J2720; J3010; J3411; J3475; J3480; J3490; J7030; J7040; J7050; J7060; J7120; P9045; Q0161; Q9967; A4215; A4216; A4221; A4222; A4223; A4315; A4452; A4649; A4663; A4930; A5120; A6204; A6219; A9900; C1713; C1729; C1776; C1894; Q9965

== ENCOUNTER → 2024-08-10 | Outpatient (CLI) | payer OTHER, MEDICAID ==
[~2024-08-10] MED LIST changes: +DOCU100C33 PO; +FURO20TA4 PO; +METO25TA6 PO; +POTA-364 PO
--- NOTE | 2024-08-10 12:42 | HMCIMG ---
Exam Type: SHOULDER COMP 2+VWS LT Clinical Information: BI LAT SHOULDER PAIN Comparison: None FINDINGS: The acromioclavicular joint shows hypertrophy, which may impinge upon the rotator cuff tendon. The glenohumeral joint is preserved. Visualized portions of the humerus, the scapula, and the clavicle as well as the upper ribcage are unremarkable. No pulmonary pathology is noted in the visualized portions of the upper lobe. The soft tissues are preserved. There are no other gross abnormalities. IMPRESSION: Degenerative changes of the acromioclavicular joint with hypertrophy.
--- NOTE | 2024-08-10 13:15 | HMCIMG ---
Exam Type: SHOULDER COMP 2+VWS RT Clinical Information: BI LAT SHOULDER PAIN Comparison: None FINDINGS: The examination is unremarkable. Specifically, the glenohumeral and acromioclavicular joints are preserved. Visualized portions of the humerus, the scapula, and the clavicle as well as the upper ribcage are unremarkable. No pulmonary pathology is noted in the visualized portions of the upper lobe. The soft tissues are preserved. There are no other gross abnormalities. IMPRESSION: NORMAL EXAMINATION.
== END | disposition home or self-care (01) ==
LOC: RAH 11:21
PROVIDERS: ATTEND Student in an Organized Health Care Education/Training Program
DX: M19.012 Primary osteoarthritis, left shoulder (principal); M89.312 Hypertrophy of bone, left shoulder; M25.511 Pain in right shoulder; M25.512 Pain in left shoulder
CPT/HCPCS: 73030